=== PATIENT | male | born 1995 | race American Indian/Alaskan Native ===

== ENCOUNTER 2019-06-01 16:25 | Emergency (ER) | payer SELFPAY ==
--- NOTE | 2019-06-01 17:49 | Event Note ---
ED Screening Note Date of service: 06/01/19 Time: 17:47 ED Screening Note: This initial assessment/diagnostic orders/clinical plan/treatment(s) is/are subject to change based on patients health status, clinical progression and re- assessment by fellow clinical providers in the ED. Further treatment and workup at subsequent clinical providers discretion. Patient/guardian urged not to elope from the ED as their condition may be serious if not clinically assessed and managed. 24 yo male c/o Painful scaly swollen penis. Denies penile discharge. Initial orders include:
--- NOTE | 2019-06-01 21:58 | Emergency Department Report ---
HPI - General Chief Complaint: Urogenital-Male Time Seen by Provider: 06/01/19 17:46 - HPI HPI: Room 34 The patient is a 24-year-old male presenting with chief complaint penile irritation. The patient states he had unprotected sex approximately one 2 days later he developed irritation and a rash to the glans of his penis. Patient denies dysuria or penile discharge Location: [See above] Duration: [See above] Quality: [See above] Severity: [See above] Timing: [See above] Context: [See above] Modifying factors: [See above] Associated signs and symptoms: [see above] ED Past Medical Hx - Past Medical History Previous Medical History?: Yes Hx Diabetes: Yes (type I diabetes) - Surgical History Past Surgical History?: No Hx Cholecystectomy: Yes Additional Surgical History: Right tib-fib plate - Family History Family history: no significant - Social History Smoking Status: Current Some Day Smoker Substance Use Type: Alcohol (occasional) - Medications Home Medications: Home Medications Medication Instructions Recorded Confirmed Last Taken Type Clotrimazole 1% [Lotrimin 1%] 1 applic TP BID #30 gm 06/01/19 Unknown Rx ED Review of Systems ROS: Stated complaint: GENITALS DISCOMFORT Other details as noted in HPI Constitutional: no symptoms reported Eyes: denies: eye pain ENT: denies: throat pain Respiratory: no symptoms reported Cardiovascular: denies: chest pain Endocrine: no symptoms reported Gastrointestinal: denies: abdominal pain Genitourinary: other (penile irritation). denies: dysuria Musculoskeletal: denies: back pain Neurological: denies: headache Physical Exam - Physical Exam Vital Signs: Vital Signs 06/01/19 06/01/19 16:32 17:42 Temperature 98.0 F 98 F Pulse Rate 77 75 Respiratory 18 18 Rate Blood Pressure 108/69 108/69 O2 Sat by Pulse 93 100 Oximetry Physical Exam: GENERAL: The patient is well-developed well-nourished male sitting in chair not appearing to be in acute distress. [] HEENT: Normocephalic. Atraumatic. Extraocular motions are intact. Patient has moist mucous membranes. NECK: Supple. Trachea midline CHEST/LUNGS: There is no respiratory distress noted. SKIN: There is no rash. There is no edema. There is no diaphoresis. NEURO: The patient is awake, alert, and oriented. The patient is cooperative. The patient has normal speech MUSCULOSKELETAL: There is no evidence of acute injury. GENITOURINARY: Excoriated regions of the glans penis appears consistent with balanitis ED Course Vital Signs 06/01/19 06/01/19 16:32 17:42 Temperature 98.0 F 98 F Pulse Rate 77 75 Respiratory 18 18 Rate Blood Pressure 108/69 108/69 O2 Sat by Pulse 93 100 Oximetry ED Medical Decision Making - Lab Data Laboratory Tests 06/01/19 22:45 Urine Color Straw Urine Turbidity Clear Urine pH 6.0 Ur Specific [place] 1.025 Urine Protein <15 mg/dl Urine Glucose (UA) >=500 Urine Ketones Neg Urine Blood Neg Urine Nitrite Neg Urine Bilirubin Neg Urine Urobilinogen < 2.0 Ur Leukocyte Esterase Neg Urine WBC (Auto) < 1.0 Urine RBC (Auto) 2.0 - Differential Diagnosis balanitis, UTI, herpes Critical care attestation.: If time is entered above; I have spent that time in minutes in the direct care of this critically ill patient, excluding procedure time. ED Disposition Clinical Impression: Balanitis Disposition: - TO HOME OR SELFCARE Is pt being admited?: No Does the pt Need Aspirin: No Condition: Stable Instructions: Reuben (ED) Additional Instructions: Return to the emergency department should you develop worsening symptoms, inability to tolerate food or liquids, high fever or any other concerns Prescriptions: Clotrimazole 1% [Lotrimin 1%] 1 applic TP BID #30 gm Referrals: [facility] [Outside] - 3-5 Days Time of Disposition: 23:05
[2019-06-01 22:57] LABS: Bilirubin,Urine NEG (Negative); Blood,Urine NEG (Negative); Color,Urine Straw (Yellow); Protein,Urine <15 mg/dL mg/dL (Negative); Urobilinogen,Urine < 2.0 mg/dL (<2.0); WBC,Urine < 1.0 /HPF (0.0-6.0)
[2019-06-02 01:44] VITALS: BP 138/97
== END 2019-06-01 23:22 | disposition home or self-care (01) ==
LOC: ED 16:25
DX: N48.1 Balanitis (principal); F17.200 Nicotine dependence, unspecified, uncomplicated; E10.9 Type 1 diabetes mellitus without complications; Z90.49 Acquired absence of other specified parts of digestive tract
CPT/HCPCS: 81001; 87591

== ENCOUNTER 2019-06-27 12:34 | Emergency (ER) | payer SELFPAY ==
--- NOTE | 2019-06-27 15:07 | Emergency Department Report ---
Chief Complaint: Dental/Oral Stated Complaint: TOOTH ACHE Time Seen by Provider: 06/27/19 15:03 - HPI History of Present Illness: pt states he has right upper dental pain that began two weeks ago states that he has a dentist appt on 07/04/2019 no fever tolerating secretions no facial edema PMHx DM no allergies to meds on exam: small cracked tooth present on the right upper jaw small cracked tooth on the right lower jaw no edema or induration of the gum no facial edema uvula is midline no uvular edema Patient is presenting with a non-medical emergency at this time Medical screening examination performed and there is no threat to life or limb at this time No signs of dental abscess or facial cellulitis Will refer patient to dental clinics MSE screening note: Focused history and physical exam performed. ED Disposition for MSE Clinical Impression: Cracked tooth, Toothache Disposition: MED SCREENING EXAM-LEFT Is pt being admited?: No Does the pt Need Aspirin: No Condition: Stable Instructions: Dental Caries (ED), Toothache (ED) Additional Instructions: please follow up with the dentist in the next 2-3 days. return to the emergency room for any new or worsening symptoms. Referrals: [facility] [Outside] - 2-3 Days Time of Disposition: 15:07 Print Language: MAURITANIAN
[2019-06-27 15:09] VITALS: BP 139/67
== END 2019-06-27 15:07 | disposition left against medical advice (07) ==
LOC: ED 12:34
DX: K03.81 Cracked tooth (principal)
CPT/HCPCS: 99281